=== PATIENT | female | born 1965 | race Caucasian/White ===

== ENCOUNTER 2019-11-28 07:51 | Emergency (ER) | payer OTHER ==
[~2019-11-28] VITALS: Ht 167.6 cm; Wt 45.4 kg
[2019-11-28 08:05] VITALS: BP 126/86
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
--- NOTE | 2019-11-28 08:10 | NUR ---
ED Nurse Note: COVID swab sent to lab.
[2019-11-28] MEDS ORDERED: Albuterol/Ipratropium 3ml neb HHN SCH (08:15)
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
--- NOTE | 2019-11-28 08:19 | NUR ---
ED Nurse Note: pt taken to CT via wheelchair accompanied by CT staff.
--- NOTE | 2019-11-28 08:29 | NUR ---
ED Nurse Note: pt back from CT in stable condition, certified histologic technician at bedside performing CXR.
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
[2019-11-28] MEDS ORDERED: ZITHROMAX250 MG ORAL (09:05)
[2019-11-28] MEDS ORDERED: PREDNISONE20 MG ORAL (09:05)
[2019-11-28] MEDS ORDERED: ALBUTEROL2.5 MG/3 M HHN (09:05)
--- NOTE | 2019-11-28 09:10 | NUR ---
ED Nurse Note: RT at bedside doing respiratory treatment.
[2019-11-28] MEDS ORDERED: Albuterol/Ipratropium 3ml neb HHN ONE (09:15)
[2019-11-28 09:20] VITALS: BP 128/86
--- NOTE | 2019-11-28 09:20 | NUR ---
ER DISCHARGE NOTE: Patient is cleared to be discharged per ERMD, pt is aox4, on room air, with stable vital signs. pt was given dc and prescription instructions, pt was able to verbalize understanding, pt id band removed without complications. pt is able to ambulate with steady gait. pt took all belongings.
--- NOTE | 2019-11-28 10:41 | Diagnostic Imaging Report ---
Procedure: XRAY Chest 1v Reason for study: Reason For Exam: SOB Comparison films: None. FINDINGS: A single one view chest is obtained. Vascularity is normal. Bilateral apical pleural parenchymal scarring noted. No acute alveolar process. Cardiac and mediastinal silhouette are within normal limits. CP angles are sharp. There are old right rib fractures. IMPRESSION: NO ACUTE CARDIOPULMONARY DISEASE.
[2019-11-29] MEDS ORDERED: ALBUTEROL SULF8.5 G1 INH (18:03)
== END 2019-11-28 09:20 | disposition home or self-care (01) ==
LOC: EMR 08:10
DX: J18.0 Bronchopneumonia, unspecified organism (principal); R51 Headache
CPT/HCPCS: 70450; 71045; 94640; J7512; U0002; Z7502; 99284; J7620